=== PATIENT | male | born 1965 | race Caucasian/White ===

== ENCOUNTER 2016-08-07 10:52 | Emergency (ER) | payer MEDICARE, MEDICAID ==
[2016-08-07] MEDS ORDERED: MECLIZINE HCL 25 MG TABLET PO ONE (11:40)
[2016-08-07] MEDS ORDERED: MECLIZINE HCL 25 MG TABLET ONE (11:46)
--- NOTE | 2016-08-07 11:47 | ERNOTE ---
Dizziness ER Record Date of Service: 08/07/16 Presenting Symptoms: dizziness Time Seen by Provider: 08/07/16 11:31 Source: patient, RN notes reviewed Exam Limitations: no limitations Immunizations: IMMUNIZATION HX Immunizations Up to Date Yes History of Influenza Vaccine No Allergies/Adverse Reactions: Allergies Allergy/AdvReac Type Severity Reaction Status Date / Time No Known Allergies Allergy Verified 08/07/16 11:21 Home Medications: HOME MEDICATIONS Albuterol Sulfate [Ventolin HFA] 2 puff IH BID 03/23/16 [Last Taken 04/17/16 04: 30] Aspirin [Aspirin Enteric Coated] 325 mg PO DAILY 03/23/16 [Last Taken 04/17/16 04:30] Atorvastatin Calcium [Lipitor] 80 mg PO DAILY 03/23/16 [Last Taken 04/17/16 04: 30] Budesonide/Formoterol Fumarate [Symbicort 160-4.5 Mcg Inhaler] 2 puff IH BID 12/01 [Last Taken 04/17/16 04:30] Cyclobenzaprine HCl [Flexeril] 10 mg PO TID 03/23/16 [Last Taken 04/17/16 04:30] Isosorbide Mononitrate [Imdur] 30 mg PO DAILY 03/23/16 [Last Taken 04/17/16 04: 30] Lisinopril [Zestril] 2.5 mg PO DAILY 03/23/16 [Last Taken 04/17/16 04:30] Metoprolol Succinate [Toprol Xl] 50 mg PO DAILY 03/23/16 [Last Taken 04/17/16 04 :30] Naproxen [Naprosyn] 500 mg PO BID 03/23/16 [Last Taken 04/17/16 04:30] Nitroglycerin [Nitrostat] 0.4 mg SL [id number] PRN 03/23/16 [Last Taken 04/17/16 04 :30] Pantoprazole Sodium [Protonix] 40 mg PO BID 03/23/16 [Last Taken 04/17/16 04:30] Sucralfate [Carafate] 1 gm PO QID 03/23/16 [Last Taken 04/17/16 04:30] - History of Present Illness Narrative: 51 y/o male ambulatory to the ED for dizziness and nausea that began yesterday and are worse today. He describes the dizziness as a lightheaded sensation. He denies any other symptoms. His grandchildren recently had influenza and he has not been vaccinated. Date (Duration): 08/06/16 Timing and Duration: gradual onset Noted on awakening:: No Sense of movement: Present: vague Decreased ability to stand/walk:: Present: walks w/o assistance Usually:: Present: walks w/o assistance Modifying Factors - (Improves): Reports: nothing Modifying Factors - (Worsens): Reports: nothing Prior Treament: Denies: recently seen Review of Systems - Review of Systems Constitutional: Present: malaise. Absent: recent illness, fever, chills, fatigue EYE: Absent: eye pain, blurred vision ENT: Absent: ear pain, nose congestion, nasal drainage, sore throat Respiratory: Absent: shortness of breath, cough Cardiology: Absent: chest pain, palpitations, syncope Gastrointestinal/Abdominal: Present: nausea. Absent: vomiting, diarrhea, abdominal pain, eating less, drinking less Genitourinary: Present: no symptoms reported Musculoskeletal: Present: no symptoms reported Skin: Absent: rash, lesions Neurological: Absent: headache, weakness, numbness, tingling Endocrine: Present: no symptoms reported Hematologic/Lymphatic: Present: no symptoms reported Psych: Present: no symptoms reported - Patient's Past Medical History Patient History - Medical: Chronic Pain, Depression Patient History - Cardiac/Respiratory: Coronary Heart Disease, Hypertension, Hyperlipidemia, Myocardial Infarction Patient History - Cancer: No Hx of Cancer Patient History - Surgical Procedures: Coronary Bypass Surgery, Cardiac stent, T & A Patient History - Other: None - Family History Father Family History - Medical: No pertinent hx Family History - Cardiac/Respiratory: CVA/Stroke, Myocardial Infarction Mother Family History - Medical: No pertinent hx Family History - Cardiac/Respiratory: No pertinent hx Sister Family History - Medical: No pertinent hx Family History - Cardiac/Respiratory: No pertinent hx - Social History Living Situations: home Abuse History: No History of abuse Psych History: Hx of Depression Smoking Status: Former smoker Alcohol Use: heavy Drug Use: none - Immunizations Immunizations Up to Date: Yes Hx Pneumococcal Vaccination: More Information Required to Determine History of Influenza Vaccine: No Physical Exam - Physical Exam General Appearance: Present: wd/wn, alert, no apparent distress Eye Exam: Normal inspection: bilateral, PERRL: bilateral, EOMI: bilateral Ears, Nose, Throat: Present: normal ENT inspection, hearing grossly normal, normal pharynx. Absent: abnormal TM (R), abnormal TM (L), nasal congestion, sinus pain/drainage, pharyngeal erythema Neck: Present: normal inspection, nontender, supple. Absent: lymphadenopathy (R ), lymphadenopathy (L) Respiratory: Present: no respiratory distress, normal breath sounds, no accessory muscle use, lungs clear Cardiovascular/Chest: Present: regular rate, rhythm, no murmur Neurological Exam: Present: alert, oriented, normal mood/affect, no motor/ sensory deficits Skin Exam: Present: normal color, warm/dry ED Progress - Results and Orders Patient's Lab Results:: I have reviewed the patient's lab results. - Vital Signs Patient's Vital Signs:: I have reviewed the patient's vital signs. Vital Signs: Vital Signs 08/07/16 11:10 Temperature 36.1 C L Pulse Rate 86 Respiratory 12 Rate Blood Pressure 117/72 O2 Sat by Pulse 96 Oximetry - Progress/Reassessment Chief Complaint: Dizziness Progress:: Improved Departure Clinical Impression: Dizziness - Departure Disposition: Home self-care Condition: Good Instructions: Dizziness, [id number] Additional Instructions: Increase your fluid intake - but decrease alcohol consumption Follow up with your doctor if symptoms continue Referrals: Oral Castañeda DO [Primary Care Provider] -
--- OUTSIDE RECORDS SUMMARY | 2016-08-07 11:53 | XMS REPORT | Continuity of Care Document ---
:1965 Author Organization [facility] ([facility]) Address [address] [place] [address] Phone [phone] Care Team Providers Name Role Phone Oral Castañeda Primary Care Provider [phone] Source Comments This disclosure is being made pursuant to the Care Everywhere program, applicable federal and state laws, and may not contain all informaitonavailable regarding this patient.[facility] ([facility]) Active Allergies and Adverse Reactions No Known Allergies Current Medications Prescription Sig. Disp. Refills Start Date End Date Status aspirin 325 mg Take 1 Tab by 05/27/2014 Active tablet mouth daily sucralfate 1000 mg Take 1 Tab by 08/05/2014 Active tablet mouth 4 times daily budesonide-formote Use 2 Puffs by 01/09/2014 Active rol (SYMBICORT) inhalation 2 160-4.5 times daily mcg/Actuation inhaler isosorbide Take 1 tablet 90 tablet 4 08/04/2015 Active mononitrate (30 mg total) by (IMDUR) 30 mg CR mouth daily. tablet pantoprazole Take 1 tablet 180 tablet 3 03/13/2016 Active (PROTONIX) 40 mg (40 mg total) by EC tablet mouth 2 times daily. atorvastatin 80 mg Take 1 tablet 90 tablet 0 07/27/2016 Active tablet (80 mg total) by mouth daily. lisinopril 2.5 mg Take 1 tablet 90 tablet 0 07/27/2016 Active tablet (2.5 mg total) by mouth daily. metoPROLol Take 1 tablet 90 tablet 0 07/27/2016 Active succinate 50 mg XL (50 mg total) by tablet mouth daily. furosemide 20 mg Take 1 tablet 90 tablet 3 08/02/2016 Active tablet (20 mg total) by mouth daily. metoPROLol Take 1 tablet 90 tablet 3 06/23/2015 Discontinued succinate 50 mg XL (50 mg total) by 7 tablet mouth daily lisinopril 2.5 mg Take 1 tablet 90 tablet 3 06/23/2015 Discontinued tablet (2.5 mg total) 7 by mouth daily atorvastatin 80 mg Take 1 tablet 90 tablet 3 06/23/2015 Discontinued tablet (80 mg total) by 7 mouth daily Active Problems Problem Noted Date CAD in [place] artery 01/05/2015 Overview: S/p CABG with ASCENCIO-LAD, VG-OM (occluded) and overlapping Promus 3.5 x12 and 3.0 x12 mm LASHANDA from LM into LCx CAD of autologous bypass graft 01/05/2015 Overview: Occluded VG-OM Hyperlipidemia 01/05/2015 Ischemic cardiomyopathy 01/05/2015 Overview: LVSF now normalized Most Recent Encounters Date Type Specialty Providers Description 08/02/2016 Office Visit Heart and Vascular Craig Nolen Dx: CAD in [place] MD [place] artery (Primary Dx) 07/27/2016 Refill Cardiac Rehabilitation Craig Nolen Dx: Cardiomyopathy MD Scott (Primary Dx) Social History Tobacco Use Types Packs/Day Years Used Date Former Smoker Last Filed Vital Signs Vital Sign Reading Time Taken Blood Pressure 104/60 08/02/2016 2:04 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 Pulse 60 08/02/2016 2:04 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 Temperature - - Respiratory Rate - - Height 1.727 m (5' 8") 08/02/2016 2:04 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 Weight 95.709 kg (211 lb) 08/02/2016 2:04 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 Body Mass Index 32.09 08/02/2016 2:04 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 Oxygen Saturation - - Plan of Care Date Type Specialty Providers Description 01/31/2017 Appointment Heart and Vascular Craig Nolen, Chief Comp: Patient Reported Reason For [address] [place] [address] [phone] (Fax) Health Maintenance Due Date Last Done Comments HCV Screening 1965 Hepatitis B Vaccine (1 of 3 - Primary Series) 1965 Tdap Vaccine 1976 Lipid Disorder Screening 1983 MMR Vaccine 1983 Td Vaccine 1983 Colonoscopy 2015 Prostate Cancer Screening 2015 Influenza Vaccine: Seasonal (#1) 01/17/2016 Results from Last 3 Months Not on file
[2016-08-07 12:01] LABS: Hematocrit 44.2 % (42.0-52.0); Mean Cell Volume 89.1 fl (78-100); Mean Corpuscular Hemoglobin 30.2 pg (27-31); Mean Corpuscular Hgb Conc 33.9 g/dl (32-36); Mean Platelet Volume 9.3 fl (6.0-9.5); Neutrophil # 5.1 K/mm3 (1.3-6.0); Neutrophil % 73.5 % (42-75.0); Platelet Count 242 K/mm3 (150-450); Red Blood Count 4.96 M/mm3 (4.7-6.0); White Blood Count 6.9 K/mm3 (4.0-10.5)
[2016-08-07 12:18] LABS: Albumin * 3.5 gm/dl (3.4-5.0); Anion Gap 16.3 mmol/L (6.8-13.8); Bilirubin, Total 0.5 mg/dL (0.0-1.1); Ca. Corrected For Albumin 8.9 mg/dL (8.4-10.2); Calcium * 8.8 mg/dL (7.9-10.9); Carbon Dioxide 23.5 mmol/L (24-32.6); Potassium 3.8 mmol/L (3.4-4.6); Total Protein 7.4 gm/dL (6.2-8.2)
[2016-08-07 12:53] VITALS: BP 136/78
== END 2016-08-07 12:56 | disposition home or self-care (01) ==
LOC: ER 10:52
DX: R42 Dizziness and giddiness (principal); I25.2 Old myocardial infarction; I10 Essential (primary) hypertension; G89.29 Other chronic pain; E78.5 Hyperlipidemia, unspecified

== ENCOUNTER 2016-11-01 13:17 | Emergency (ER) | payer MEDICARE, MEDICAID ==
[2016-11-01] MEDS ORDERED: ASPIRIN 81 MG TAB.CHEW PO ONE (13:28)
--- OUTSIDE RECORDS SUMMARY | 2016-11-01 13:29 | XMS REPORT | Continuity of Care Document ---
:1965 Author Organization [facility] ([facility]) Address [address] [place] [address] Phone [phone] Care Team Providers Name Role Phone Oral Castañeda Primary Care Provider [phone] Source Comments This disclosure is being made pursuant to the Care Everywhere program, applicable federal and state laws, and may not contain all informaitonavailable regarding this patient.[facility] ([facility]) Active Allergies and Adverse Reactions No Known Allergies Current Medications Prescription Sig. Disp. Refills Start Date End Date Status aspirin 325 mg tablet Take 1 Tab by 05/27/2014 Active mouth daily sucralfate 1000 mg Take 1 Tab by 08/05/2014 Active tablet mouth 4 times daily budesonide-formoterol Use 2 Puffs by 01/09/2014 Active (SYMBICORT) 160-4.5 inhalation 2 times mcg/Actuation inhaler daily pantoprazole Take 1 tablet (40 180 tablet 3 03/13/2016 Active (PROTONIX) 40 mg EC mg total) by mouth tablet 2 times daily. furosemide 20 mg Take 1 tablet (20 90 tablet 3 08/02/2016 Active tablet mg total) by mouth daily. isosorbide Take 1 tablet (30 90 tablet 4 08/11/2016 Active mononitrate (IMDUR) mg total) by mouth 30 mg CR tablet daily. atorvastatin 80 mg Take 1 tablet (80 90 tablet 3 08/25/2016 Active tablet mg total) by mouth daily. metoPROLol succinate Take 1 tablet (50 90 tablet 3 08/25/2016 Active 50 mg XL tablet mg total) by mouth daily. lisinopril 2.5 mg Take 1 tablet (2.5 90 tablet 3 08/25/2016 Active tablet mg total) by mouth daily. Active Problems Problem Noted Date CAD in [place] artery 01/05/2015 Overview: S/p CABG with ASCENCIO-LAD, VG-OM (occluded) and overlapping Promus 3.5 x12 and 3.0 x12 mm LASHANDA from LM into LCx CAD of autologous bypass graft 01/05/2015 Overview: Occluded VG-OM Hyperlipidemia 01/05/2015 Ischemic cardiomyopathy 01/05/2015 Overview: LVSF now normalized Most Recent Encounters Date Type Specialty Providers Description 08/25/2016 Refill Cardiac Rehabilitation Candy Rogel MD Dx: Hyperlipidemia (Primary Dx) 08/11/2016 Refill Heart and Vascular Craig Nolen, Dx: CAD in [place] artery (Primary Dx) Social History Tobacco Use Types Packs/Day Years Used Date Former Smoker Last Filed Vital Signs Vital Sign Reading Time Taken Blood Pressure 104/60 08/02/2016 2:04 PM 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 Pulse 60 08/02/2016 2:04 PM BEE RAISER Temperature - - Respiratory Rate - - Height 1.727 m (5' 8") 08/02/2016 2:04 PM BEE RAISER Weight 95.709 kg (211 lb) 08/02/2016 2:04 PM BEE RAISER Body Mass Index 32.09 08/02/2016 2:04 PM BEE RAISER Oxygen Saturation - - Plan of Care Date Type Specialty Providers Description 01/31/2017 Appointment Heart and Vascular Craig Nolen, Chief Comp: Patient MD Reported Reason For [address] [place] [address] [phone] (Fax) Health Maintenance Due Date Last Done Comments HCV Screening 1965 Hepatitis B Vaccine (1 of 3 - Primary Series) 1965 Tdap Vaccine 1976 Lipid Disorder Screening 1983 MMR Vaccine 1983 Td Vaccine 1983 Colonoscopy 2015 Prostate Cancer Screening 2015 Influenza Vaccine: Seasonal (#1) 01/17/2016 Results from Last 3 Months Not on file
[2016-11-01 13:43] LABS: Hematocrit 41.1 % (42.0-52.0); Hemoglobin 14.1 gm/dL (13.5-18.0); Mean Cell Volume 88.8 fl (78-100); Mean Corpuscular Hemoglobin 30.5 pg (27-31); Mean Corpuscular Hgb Conc 34.3 g/dl (32-36); Mean Platelet Volume 9.7 fl (6.0-9.5); Neutrophil # 5.1 K/mm3 (1.3-6.0); Neutrophil % 66.8 % (42-75.0); Platelet Count 219 K/mm3 (150-450); Red Blood Count 4.63 M/mm3 (4.7-6.0); White Blood Count 7.6 K/mm3 (4.0-10.5)
[2016-11-01] MEDS ORDERED: ASPIRIN 81 MG TAB.CHEW ONE (13:44)
[2016-11-01 13:53] LABS: Prothrombin Time (Patient) 10.5 Seconds (9.4-11.4)
[2016-11-01 13:55] LABS: INR 1.01 INR (0.90-1.10); Partial Thrombolplastin Time 28.6 Seconds (24-32)
[2016-11-01 14:02] LABS: ALT 47 U/L (19-67); AST 32 U/L (0-48); Albumin * 3.2 gm/dl (3.4-5.0); Alkaline Phosphatase * 86 U/L (50-170); Anion Gap 10.5 mmol/L (6.8-13.8); BUN/Creatinine Ratio 10.3 (9.0-21.6); Bilirubin, Total 0.5 mg/dL (0.0-1.1); Blood Urea Nitrogen 12 mg/dL (6-23); Ca. Corrected For Albumin 8.8 mg/dL (8.4-10.2); Calcium * 8.5 mg/dL (7.9-10.9); Carbon Dioxide 28.8 mmol/L (24-32.6); Chloride 104 mmol/L (97-106); Glucose * 134 mg/dL (70-110); Potassium 4.3 mmol/L (3.4-4.6); Sodium 139 mmol/L (132-142); Total Protein 6.7 gm/dL (6.2-8.2)
[2016-11-01 14:04] LABS: Troponin I Less than 0.017 ng/ml (0.00-0.10)
[2016-11-01 15:13] VITALS: BP 100/69
--- NOTE | 2016-11-01 15:36 | ERNOTE ---
Chest Pain/Cardiac HPI Date of Service: 11/01/16 Chief Complaint: Chest Pain Time Seen by Provider: 11/01/16 13:39 Source: patient Exam Limitations: no limitations Immunizations: IMMUNIZATION HX Immunizations Up to Date Yes History of Influenza Vaccine Yes Hx Pneumococcal Vaccination Yes Allergies/Adverse Reactions: Allergies No Known Allergies Allergy (Verified 11/01/16 13:26) Home Medications: HOME MEDICATIONS Albuterol Sulfate [Ventolin HFA] 2 puff IH BID 03/23/16 [Last Taken 04/17/16 04: 30] Aspirin [Aspirin Enteric Coated] 325 mg PO DAILY 03/23/16 [Last Taken 04/17/16 04:30] Atorvastatin Calcium [Lipitor] 80 mg PO DAILY 03/23/16 [Last Taken 04/17/16 04: 30] Budesonide/Formoterol Fumarate [Symbicort 160-4.5 Mcg Inhaler] 2 puff IH BID 12/01 [Last Taken 04/17/16 04:30] Cyclobenzaprine HCl [Flexeril] 10 mg PO TID 03/23/16 [Last Taken 04/17/16 04:30] Isosorbide Mononitrate [Imdur] 30 mg PO DAILY 03/23/16 [Last Taken 04/17/16 04: 30] Lisinopril [Zestril] 2.5 mg PO DAILY 03/23/16 [Last Taken 04/17/16 04:30] Metoprolol Succinate [Toprol Xl] 50 mg PO DAILY 03/23/16 [Last Taken 04/17/16 04 :30] Naproxen [Naprosyn] 500 mg PO BID 03/23/16 [Last Taken 04/17/16 04:30] Nitroglycerin [Nitrostat] 0.4 mg SL [id number] PRN 03/23/16 [Last Taken 04/17/16 04 :30] Pantoprazole Sodium [Protonix] 40 mg PO BID 03/23/16 [Last Taken 04/17/16 04:30] Sucralfate [Carafate] 1 gm PO QID 03/23/16 [Last Taken 04/17/16 04:30] Narrative: patient presenting to the ED for Chest pain that started at 4am. He is unsure how long it lasted but stated it has passed. he is here because he feels a little weak. Date (Duration): 11/01/16 Timing: resolved prior to arrival Severity/Quality: mild Location: substernal Chest Pain Radiation: no radiation Activities at Onset: none Modifying Factors - Improves: Present: nothing Modifying Factors - Worsens: Present: nothing Nitro Today/Relief: no nitro taken today Aspirin Treatment Today: 325 mg x 1, provided at home Associated Symptoms: Present: denies symptoms. Absent: headache, fever/chills, nausea, vomiting Prior Chest Pain/Cardiac Workup: Reports: prior chest pain, heart attack, cardiac cath Review of Systems - Narrative Narrative: patient states that he had chest pain at 4am. patient currently has no chest pain but stated he was helping someone move yesterday, lifting boxes and may have over exerted himself. patient states he drink about 4 days a week and drinks about 6 beers when he does. - Review of Systems Constitutional: Present: weakness, fatigue EYE: Present: no symptoms reported ENT: Present: no symptoms reported Respiratory: Present: no symptoms reported Cardiology: Present: no symptoms reported Gastrointestinal/Abdominal: Present: no symptoms reported Genitourinary: Present: no symptoms reported Musculoskeletal: Present: no symptoms reported Skin: Present: no symptoms reported Neurological: Present: no symptoms reported Endocrine: Present: no symptoms reported Hematologic/Lymphatic: Present: no symptoms reported Psych: Present: no symptoms reported - Patient's Past Medical History Patient History - Medical: Chronic Pain, Depression Patient History - Cardiac/Respiratory: Coronary Heart Disease, Hypertension, Hyperlipidemia, Myocardial Infarction Patient History - Cancer: No Hx of Cancer Patient History - Surgical Procedures: Coronary Bypass Surgery, Cardiac stent, T & A Patient History - Other: None - Family History Father Family History - Medical: No pertinent hx Family History - Cardiac/Respiratory: CVA/Stroke, Myocardial Infarction Mother Family History - Medical: No pertinent hx Family History - Cardiac/Respiratory: No pertinent hx Sister Family History - Medical: No pertinent hx Family History - Cardiac/Respiratory: No pertinent hx - Social History Living Situations: home Abuse History: No History of abuse Psych History: Hx of Depression Smoking Status: Former smoker Alcohol Use: heavy Drug Use: none - Immunizations Immunizations Up to Date: Yes Hx Pneumococcal Vaccination: Yes History of Influenza Vaccine: Yes Physical Exam - Physical Exam Narrative: no pain at this time. patient appears slightly dehydrated, and sunburnt. General Appearance: Present: wd/wn, alert, no apparent distress Eye Exam: Normal inspection: bilateral Ears, Nose, Throat: Present: normal ENT inspection, dry mucous membranes. Absent: hearing decreased Neck: Present: normal inspection, nontender Respiratory: Present: no respiratory distress, normal breath sounds, no accessory muscle use, chest nontender, lungs clear Cardiovascular/Chest: Present: regular rate, rhythm, no murmur, normal peripheral pulses Gastrointestinal/Abdominal: Present: normal bowel sounds, nontender, soft Back Exam: Present: normal inspection, normal range of motion, no CVA tenderness , no vertebral tenderness Extremity Exam: Present: normal inspection, non-tender, normal range of motion, no edema Neurological Exam: Present: alert, oriented, normal mood/affect, no motor/ sensory deficits Skin Exam: Present: normal color, warm/dry Lymphatic Exam: Present: no adenopathy ED Progress - Results and Orders Patient's Lab Results:: I have reviewed the patient's lab results. Results and Orders: negative trop - Vital Signs Patient's Vital Signs:: I have reviewed the patient's vital signs. Vital Signs: Vital Signs 11/01/16 11/01/16 11/01/16 13:21 13:32 13:47 Temperature 36.8 C Pulse Rate 67 59 L 68 Respiratory 16 13 15 Rate Blood Pressure 125/54 108/69 109/71 O2 Sat by Pulse 96 94 93 Oximetry 11/01/16 11/01/16 11/01/16 14:07 14:17 14:32 Temperature Pulse Rate 56 L 63 62 Respiratory 13 17 14 Rate Blood Pressure 98/51 114/75 102/61 O2 Sat by Pulse 95 94 91 Oximetry 11/01/16 11/01/16 11/01/16 14:35 14:45 14:57 Temperature Pulse Rate 66 59 L 60 Respiratory 16 17 Rate Blood Pressure 112/63 108/66 O2 Sat by Pulse 92 93 Oximetry 11/01/16 15:07 Temperature Pulse Rate 59 L Respiratory 11 L Rate Blood Pressure 100/69 O2 Sat by Pulse 95 Oximetry - EKG EKG read: Reviewed by me EKG Comments: interp by ER Attending - X-Ray X-Ray #1 X-Ray: chest Interpretation: Reviewed by me X-ray Comments: 05/12/2016 FINDINGS: Chest PA Lateral * Hyperinflated lung volumes, stable. No consolidation or mass. No pneumothorax or pleural fluid collections. Cardiac size within normal limits. Calcifications over the aorta, stable. Surgical changes of the mediastinum and the heart likely from previous coronary artery bypass graft procedure, stable. Trachea is in normal position. Bones show degenerative changes of the spine. Median sternotomy wires are present, stable. IMPRESSION: 1. No focal acute cardiopulmonary finding. 2. Stable findings are as above. Electronically signed by Duke Kaye M.D.. - Progress/Reassessment Chief Complaint: Chest Pain Progress:: Pain free at discharge Plan - Plan Plan: patient states he feels better and requesting to go home, Refused IV and IV fluids. Patient also refused to be observed for another set of labs or a 23 hour obs r/t his chest pain and his significant cardiac history. Patient stated that he is " going to go home and take it easy" and that he is "feeling better". ER attending aware of this situation. Departure - Departure Clinical Impression: Chest pain Qualifiers: Chest pain type: unspecified Qualified Code(s): R07.9 - Chest pain, unspecified Disposition: Home Follow Up Needed Condition: Stable Instructions: Nonspecific Chest Pain, [id number] Additional Instructions: Continue any previous medications as directed. Please return to the emergency room if he develop any new signs and symptoms of chest pain or shortness of breath. Follow up with your primary care regarding technician support engineer in the next 2- 3 days. Referrals: Oral Castañeda DO [Primary Care Provider] -
== END 2016-11-01 15:44 | disposition home or self-care (01) ==
LOC: ER 13:17
DX: R07.9 Chest pain, unspecified (principal); Z87.891 Personal history of nicotine dependence; E78.5 Hyperlipidemia, unspecified; I10 Essential (primary) hypertension; Z95.5 Presence of coronary angioplasty implant and graft; I50.9 Heart failure, unspecified

== ENCOUNTER 2017-03-04 12:49 | Emergency (ER) | payer MEDICARE, MEDICAID ==
[2017-03-04 13:04] VITALS: BP 121/76
--- NOTE | 2017-03-04 13:20 | ERNOTE ---
Date of Service: 03/04/17 Time Seen by Provider: 03/04/17 13:10 Stated Complaint: NOT FEELING WELL Presenting Symptoms:: cough, runny nose, fever Source: patient Exam Limitations: no limitations Immunizations: IMMUNIZATION HX Immunizations Up to Date Yes History of Influenza Vaccine No Hx Pneumococcal Vaccination No Allergies/Adverse Reactions: Allergies No Known Allergies Allergy (Verified 03/04/17 13:04) Home Medications: HOME MEDICATIONS Albuterol Sulfate [Ventolin HFA] 2 puff IH BID 03/23/16 [Last Taken 04/17/16 04: 30] Aspirin [Aspirin Enteric Coated] 325 mg PO DAILY 03/23/16 [Last Taken 04/17/16 04:30] Atorvastatin Calcium [Lipitor] 80 mg PO DAILY 03/23/16 [Last Taken 04/17/16 04: 30] Budesonide/Formoterol Fumarate [Symbicort 160-4.5 Mcg Inhaler] 2 puff IH BID 12/01 [Last Taken 04/17/16 04:30] Cyclobenzaprine HCl [Flexeril] 10 mg PO TID 03/23/16 [Last Taken 04/17/16 04:30] Isosorbide Mononitrate [Imdur] 30 mg PO DAILY 03/23/16 [Last Taken 04/17/16 04: 30] Lisinopril [Zestril] 2.5 mg PO DAILY 03/23/16 [Last Taken 04/17/16 04:30] Metoprolol Succinate [Toprol Xl] 50 mg PO DAILY 03/23/16 [Last Taken 04/17/16 04 :30] Naproxen [Naprosyn] 500 mg PO BID 03/23/16 [Last Taken 04/17/16 04:30] Nitroglycerin [Nitrostat] 0.4 mg SL [id number] PRN 03/23/16 [Last Taken 04/17/16 04 :30] Pantoprazole Sodium [Protonix] 40 mg PO BID 03/23/16 [Last Taken 04/17/16 04:30] Sucralfate [Carafate] 1 gm PO QID 03/23/16 [Last Taken 04/17/16 04:30] Doxycycline Hyclate [Morgidox] 100 mg PO BID #20 capsule 03/04/17 [Last Taken Unknown] - History of Present Ilness Timing: constant, getting worse Severity: moderate Frequency/Possible Cause: Reports: occasional episodes Modifying Factors - Improves: Reports: nothing Modifying Factors - Worsens: Reports: activity Associated Symptoms: Reports: cough, nasal congestion, nasal drainage, dizziness , lightheadedness Review of Systems - Review of Systems Constitutional: Present: See HPI, recent illness, weakness, fatigue, malaise EYE: Present: no symptoms reported ENT: Present: nose congestion, nasal drainage Respiratory: Present: shortness of breath Cardiology: Present: no symptoms reported Gastrointestinal/Abdominal: Present: no symptoms reported Genitourinary: Present: no symptoms reported Musculoskeletal: Present: muscle stiffness Neurological: Present: no symptoms reported Endocrine: Present: no symptoms reported Hematologic/Lymphatic: Present: no symptoms reported Psych: Present: no symptoms reported All Other Systems: All systems neg except as marked - Patient's Past Medical History Patient History - Medical: Chronic Pain, Depression Patient History - Cardiac/Respiratory: Coronary Heart Disease, Hypertension, Hyperlipidemia, Myocardial Infarction Patient History - Cancer: No Hx of Cancer Patient History - Surgical Procedures: Coronary Bypass Surgery, Cardiac stent, Other Patient History - Other: None - Family History Family History:: no untoward family reactions to anesthesia, no family history of clotting disorders - Family History Father Family History - Medical: No pertinent hx Family History - Cardiac/Respiratory: CVA/Stroke, Myocardial Infarction Mother Family History - Medical: No pertinent hx Family History - Cardiac/Respiratory: No pertinent hx Sister Family History - Medical: No pertinent hx Family History - Cardiac/Respiratory: No pertinent hx - Social History Living Situations: home Abuse History: No History of abuse Psych History: Hx of Depression Smoking Status: Former smoker Alcohol Use: heavy Drug Use: none - Immunizations Immunizations Up to Date: Yes Hx Pneumococcal Vaccination: No History of Influenza Vaccine: No Physical Exam - Physical Exam General Appearance: Present: mild distress, anxious Head Exam: Present: no evidence of injury Eye Exam: Normal inspection: bilateral, PERRL: bilateral, EOMI: bilateral Ears, Nose, Throat: Present: sinus pain/drainage, normal pharynx Neck: Present: normal inspection, nontender Respiratory: Present: no respiratory distress, normal breath sounds, no accessory muscle use, chest nontender, lungs clear Cardiovascular/Chest: Present: regular rate, rhythm, no murmur, normal peripheral pulses Peripheral Pulses: N=norm/S=strong/W=weak/B=bound/A=absent: Carotid (R): Normal , Carotid (L): Normal, Radial (R): Normal, Radial (L): Normal, Femoral (R): Normal, Femoral (L): Normal, Dorsalis-pedis (R): Normal, Dorsalis-pedis (L): Normal Gastrointestinal/Abdominal: Present: normal bowel sounds, nontender, nondistended, soft, no organomegaly Back Exam: Present: normal inspection, normal range of motion, no CVA tenderness , no vertebral tenderness Extremity Exam: Present: normal inspection, non-tender, normal range of motion, no edema Neurological Exam: Present: alert, oriented ED Progress - Vital Signs Patient's Vital Signs:: I have reviewed the patient's vital signs. Vital Signs: Vital Signs 03/04/17 03/04/17 13:01 13:08 Temperature 36.4 C L Pulse Rate 57 L 57 L Respiratory 17 Rate Blood Pressure 121/76 O2 Sat by Pulse 98 Oximetry - Progress/Reassessment Chief Complaint: Upper Respiratory Symptoms Progress:: Unchanged - Transfer of Care Expected Disposition: Discharge Departure - Departure Clinical Impression: Sinusitis chronic, ethmoidal Disposition: Home self-care Condition: Fair Instructions: Sinusitis, Adult, [id number] Referrals: Oral Castañeda DO [Primary Care Provider] - Prescriptions: Doxycycline Hyclate [Morgidox] 100 mg PO BID #20 capsule
== END 2017-03-04 13:29 | disposition home or self-care (01) ==
LOC: ER 12:49
DX: J32.2 Chronic ethmoidal sinusitis (principal); G89.29 Other chronic pain; I25.2 Old myocardial infarction; I10 Essential (primary) hypertension; E78.5 Hyperlipidemia, unspecified; F32.89 Other specified depressive episodes

== ENCOUNTER 2017-03-12 14:22 | Emergency (ER) | payer MEDICARE, MEDICAID ==
[2017-03-12] MEDS ORDERED: ALBUTEROL SULFATE/IPRATROPIUM 3 ML NEBU IH ONE ×2 (15:00→15:02)
[2017-03-12 15:02] LABS: Hematocrit 42.9 % (42.0-52.0); Hemoglobin 14.8 gm/dL (13.5-18.0); Mean Cell Volume 88.6 fl (78-100); Mean Corpuscular Hemoglobin 30.6 pg (27-31); Mean Corpuscular Hgb Conc 34.5 g/dl (32-36); Mean Platelet Volume 9.9 fl (6.0-9.5); Neutrophil % 67.8 % (42-75.0); Platelet Count 237 K/mm3 (150-450); Red Blood Count 4.84 M/mm3 (4.7-6.0); Red Cell Distribution Width 12.7 % (11.5-14.0); White Blood Count 8.8 K/mm3 (4.0-10.5)
[2017-03-12 15:19] LABS: ALT 68 U/L (19-67); AST 39 U/L (0-48); Albumin * 3.3 gm/dl (3.4-5.0); Alkaline Phosphatase * 88 U/L (50-170); Anion Gap 14.1 mmol/L (6.8-13.8); BNP * 88 pg/mL (5-140); BUN/Creatinine Ratio 18.8 (9.0-21.6); Bilirubin, Total 0.4 mg/dL (0.0-1.1); Blood Urea Nitrogen 21 mg/dL (6-23); Ca. Corrected For Albumin 9.2 mg/dL (8.4-10.2); Carbon Dioxide 23.8 mmol/L (24-32.6); Chloride 102 mmol/L (97-106); Glucose * 182 mg/dL (70-110); Potassium 3.9 mmol/L (3.4-4.6); Sodium 136 mmol/L (132-142); Total Protein 7.2 gm/dL (6.2-8.2)
[2017-03-12 15:21] LABS: Troponin I Less than 0.017 ng/ml (0.00-0.10)
--- NOTE | 2017-03-12 15:34 | ERNOTE ---
Dyspnea - Date Date of Service: 03/12/17 - General Presenting Symptoms: shortness of breath Time Seen by Provider: 03/12/17 15:22 Source: patient - Immun/Allergies/Home Medications Immunizations: IMMUNIZATION HX Immunizations Up to Date Yes History of Influenza Vaccine Yes Hx Pneumococcal Vaccination No Allergies/Adverse Reactions: Allergies No Known Allergies Allergy (Verified 03/04/17 13:04) Home Medications: HOME MEDICATIONS Albuterol Sulfate [Ventolin HFA] 2 puff IH BID 03/23/16 [Last Taken 04/17/16 04: 30] Aspirin [Aspirin Enteric Coated] 325 mg PO DAILY 03/23/16 [Last Taken 04/17/16 04:30] Atorvastatin Calcium [Lipitor] 80 mg PO DAILY 03/23/16 [Last Taken 04/17/16 04: 30] Budesonide/Formoterol Fumarate [Symbicort 160-4.5 Mcg Inhaler] 2 puff IH BID 12/01 [Last Taken 04/17/16 04:30] Cyclobenzaprine HCl [Flexeril] 10 mg PO TID 03/23/16 [Last Taken 04/17/16 04:30] Isosorbide Mononitrate [Imdur] 30 mg PO DAILY 03/23/16 [Last Taken 04/17/16 04: 30] Lisinopril [Zestril] 2.5 mg PO DAILY 03/23/16 [Last Taken 04/17/16 04:30] Metoprolol Succinate [Toprol Xl] 50 mg PO DAILY 03/23/16 [Last Taken 04/17/16 04 :30] Naproxen [Naprosyn] 500 mg PO BID 03/23/16 [Last Taken 04/17/16 04:30] Nitroglycerin [Nitrostat] 0.4 mg SL [id number] PRN 03/23/16 [Last Taken 04/17/16 04 :30] Pantoprazole Sodium [Protonix] 40 mg PO BID 03/23/16 [Last Taken 04/17/16 04:30] Sucralfate [Carafate] 1 gm PO QID 03/23/16 [Last Taken 04/17/16 04:30] Doxycycline Hyclate [Morgidox] 100 mg PO BID #20 capsule 03/04/17 [Last Taken Unknown] predniSONE [Prednisone] 2 tab PO DAILY #10 tab 03/12/17 [Last Taken Unknown] - History of Present Illness Narrative: 52yo, M, presents to ER for SOB. States he sat down to drink coffee at a local restaurant. Notes it was "hot and muggy" outside and also inside the restaurant and began to feel SOB. He left after 1 cup and went home and took albuterol inhaler with some mild improvement. His symptoms did not completely resolve, so came to ER. Associated symptoms include sinus congestion for the past 2-2.5 weeks, dx with URI. He also developed some intermittent wheezing over the past week. He does have a hx of several MIs in 2013 over a 1.5 month period. He then had a CABG in December 2013. May 2014 had 2 additional stents placed. Since that time, no additional cardiac events. He denies any anterior CP or CP that radiates. He did have a twinge of pain to his L. lateral chest wall lasting a few seconds this am, but no recurrence since. 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 Denies: aspiration/ choking, exposure to smoke Frequency of episodes: Reports: no prior episodes Modifying Factors - (Improves): Reports: albuterol - mild Modifying Factors (Worsens): Reports: activity Associated Symptoms-Dyspnea: Reports: cough, wheezing - 1 week. Denies: chest pain/discomfort, palpitations, dizziness, lightheadedness Review of Systems - Review of Systems Constitutional: Present: fatigue. Absent: fever, chills EYE: Absent: eye pain ENT: Present: nose congestion. Absent: ear pain, sore throat Respiratory: Present: shortness of breath, cough, wheezing Cardiology: Absent: chest pain, palpitations, syncope, edema Gastrointestinal/Abdominal: Absent: nausea, vomiting, abdominal pain Skin: Absent: rash - Patient's Past Medical History Patient History - Medical: Anxiety, Chronic Pain, Depression Patient History - Cardiac/Respiratory: Coronary Heart Disease, Hypertension, Hyperlipidemia, Myocardial Infarction Patient History - Cancer: No Hx of Cancer Patient History - Surgical Procedures: Coronary Bypass Surgery, Cardiac stent, Other Patient History - Other: None - Family History Father Family History - Medical: No pertinent hx Family History - Cardiac/Respiratory: CVA/Stroke, Myocardial Infarction Mother Family History - Medical: No pertinent hx Family History - Cardiac/Respiratory: No pertinent hx Sister Family History - Medical: No pertinent hx Family History - Cardiac/Respiratory: No pertinent hx - Social History Living Situations: home Abuse History: No History of abuse Psych History: Hx of Anxiety, Hx of Depression Smoking Status: Never smoker Have you smoked in the past 12 months: No Do you dip or chew tobacco: No Alcohol Use: heavy Drug Use: none - Immunizations Immunizations Up to Date: Yes Hx Pneumococcal Vaccination: No History of Influenza Vaccine: Yes ED Progress - Date and Time Seen: Date and Time: 03/12/17 17:00 Reports feeling improved since arrival. Reviewed labs and xray with pt in detail. Notes he is only taking his Symbicort once daily and it is ordered twice daily, he is also taking the Doxycycline ordered at his last ER visit daily, rather than the prescribed BID. 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 Discussed risks of stopping medication suddenly without instruction of his doctor. Pt v/u and states he will resume as ordered. - Results and Orders Patient's Lab Results:: I have reviewed the patient's lab results. - Vital Signs Patient's Vital Signs:: I have reviewed the patient's vital signs. Vital Signs: Vital Signs 03/12/17 03/12/17 14:42 15:02 Pulse Rate 82 87 Respiratory 22 H 22 H Rate Blood Pressure 122/80 O2 Sat by Pulse 98 96 Oximetry - EKG EKG: other - possible anterior myocardial ishcmeia - X-Ray X-Ray #1 X-Ray: chest Interpretation: Reviewed by me X-ray Comments: [facility] PATIENT RADIOLOGY STUDY REPORT Patient Patient Name:DAVE SMITH Date: 1965 Sex: M Order Number: [id number] Unique Exam ID: [id number] Exam Requested: CXRPALAT - Chest PA Lateral * Date Scheduled: 03-12-2017 04:10 PM Study Priority: Requesting Service: Requesting Physician: Sagar Alonso Reason for Exam: Shortness of breath Radiological Report : [place] [address] NAME: DAVE SMITH : 1965 MR #: [id number] CC: Sagar Alonso MD LOC: ADM DATE: X-RAY REPORT [id number] RAD/Chest PA Lateral * Exam Date: 03/12/2017 16:10 Ordering Physician: Sagar Alonso HISTORY: Shortness of breath Additional history from technologist: Shortness of breath which started today. History of triple bypass and stenting. History of smoking. TECHNIQUE: PA and lateral views of the chest were obtained. 2 images. COMPARISONS: 11/01/2016 FINDINGS: Chest PA Lateral * Hyperinflated lung volumes, with central bronchial wall prominence and somewhat hyperlucent appearance of the lungs, stable radiographically suggestive of underlying COPD. Correlate clinically. Other considerations include chronic airways disease/bronchitis or reactive airways disease. No consolidation or mass. No pneumothorax or pleural fluid collections. Mild cardiomegaly, stable. Surgical changes of previous coronary artery bypass graft procedure, grossly stable. Trachea is in normal position. Bones show degenerative changes of the spine. Median sternotomy wires are present. IMPRESSION: 1. No focal acute cardiopulmonary finding. 2. Stable findings as discussed above. Correlate technically. Electronically signed by Duke Kaye M.D.. Duke Kaye MD Dict: 03/12/17 1615 Typed: 03/12/17 1618/ 03/12/17 1626 03/12/17 1629 , Approved by: DUKE KAYE Approval Date: 03-12-2017 Approval Time: 04:18 PM THIS REPORT WAS RECEIVED FROM THE [employer] SYSTEM - Progress/Reassessment Chief Complaint: Dyspnea Progress:: Improved Departure Clinical Impression: COPD exacerbation - Departure Disposition: Home self-care Condition: Good Instructions: Chronic Obstructive Pulmonary Disease Exacerbation, [id number] Additional Instructions: Resume use of your Symbicort twice daily as ordered Increase your Albuterol inhaler (rescue inhaler) to 2 puffs every 6 hours scheduled for the next 2 days, and as needed for shortness of breath Complete your Doxycycline as previously ordered (twice daily) Return to ER for any difficulty breathing Referrals: Oral Castañeda DO [Primary Care Provider] - Prescriptions: predniSONE [Prednisone] 2 tab PO DAILY #10 tab
[2017-03-12] MEDS ORDERED: METHYLPREDNISOLONE SOD SUCC/PF 125 MG/2 ML VIAL IM ONE (17:13)
[2017-03-12] MEDS ORDERED: METHYLPREDNISOLONE SOD SUCC/PF 125 MG/2 ML VIAL ONE (17:23)
[2017-03-12 17:38] VITALS: BP 134/84
== END 2017-03-12 17:39 | disposition home or self-care (01) ==
LOC: ER 14:22
DX: J44.1 Chronic obstructive pulmonary disease with (acute) exacerbation (principal)

== ENCOUNTER 2017-07-16 20:09 | Emergency (ER) | payer MEDICARE, MEDICAID ==
[2017-07-16] MEDS ORDERED: NITROGLYCERIN 0.4 MG/TAB BTL SL PRN (20:22)
[2017-07-16] MEDS ORDERED: ASPIRIN 81 MG TAB.CHEW PO ONE (20:22)
--- NOTE | 2017-07-16 20:30 | ERNOTE ---
Dyspnea - General Presenting Symptoms: shortness of breath Time Seen by Provider: 07/16/17 20:18 Source: patient Exam Limitations: no limitations - Immun/Allergies/Home Medications Immunizations: IMMUNIZATION HX Immunizations Up to Date Yes History of Influenza Vaccine Yes Hx Pneumococcal Vaccination No Allergies/Adverse Reactions: Allergies No Known Allergies Allergy (Verified 07/16/17 20:15) Home Medications: HOME MEDICATIONS Albuterol Sulfate [Ventolin HFA] 2 puff IH BID 03/23/16 [Last Taken 04/17/16 04: 30] Aspirin [Aspirin Enteric Coated] 325 mg PO DAILY 03/23/16 [Last Taken 04/17/16 04:30] Atorvastatin Calcium [Lipitor] 80 mg PO DAILY 03/23/16 [Last Taken 04/17/16 04: 30] Budesonide/Formoterol Fumarate [Symbicort 160-4.5 Mcg Inhaler] 2 puff IH BID 12/01 [Last Taken 04/17/16 04:30] Isosorbide Mononitrate [Imdur] 30 mg PO DAILY 03/23/16 [Last Taken 04/17/16 04: 30] Lisinopril [Zestril] 2.5 mg PO DAILY 03/23/16 [Last Taken 04/17/16 04:30] Metoprolol Succinate [Toprol Xl] 50 mg PO DAILY 03/23/16 [Last Taken 04/17/16 04 :30] Naproxen [Naprosyn] 500 mg PO BID 03/23/16 [Last Taken 04/17/16 04:30] Pantoprazole Sodium [Protonix] 40 mg PO BID 03/23/16 [Last Taken 04/17/16 04:30] Sucralfate [Carafate] 1 gm PO QID 03/23/16 [Last Taken 04/17/16 04:30] Azithromycin 250 mg PO DAILY #4 tablet 07/16/17 [Last Taken Unknown] Methylprednisolone [Medrol Dosepak] 4 mg PO DAILY #21 tab.ds.pk 07/16/17 [Last Taken Unknown] - History of Present Illness Narrative: Pt states he has been short of breath for about a week. Today it worsened and his inhalers have not helped. Severity: moderate Initiating event: Reports: unknown Frequency of episodes: Reports: occassional episodes Modifying Factors - (Improves): Reports: albuterol - until today Modifying Factors (Worsens): Reports: activity Review of Systems - Review of Systems Constitutional: Absent: fever, chills EYE: Present: no symptoms reported ENT: Present: no symptoms reported Respiratory: Present: See HPI Cardiology: Absent: chest pain, palpitations Gastrointestinal/Abdominal: Absent: nausea Genitourinary: Present: no symptoms reported Musculoskeletal: Present: no symptoms reported Skin: Present: no symptoms reported Neurological: Present: no symptoms reported Endocrine: Absent: excessive sweating Hematologic/Lymphatic: Present: no symptoms reported Psych: Present: no symptoms reported - Patient's Past Medical History Patient History - Medical: Anxiety, Chronic Pain, Depression Patient History - Cardiac/Respiratory: Coronary Heart Disease, Hypertension, Hyperlipidemia, Myocardial Infarction Patient History - Cancer: No Hx of Cancer Patient History - Surgical Procedures: Coronary Bypass Surgery, Cardiac stent, Other Patient History - Other: None - Family History Father Family History - Medical: No pertinent hx Family History - Cardiac/Respiratory: CVA/Stroke, Myocardial Infarction Mother Family History - Medical: No pertinent hx Family History - Cardiac/Respiratory: No pertinent hx Sister Family History - Medical: No pertinent hx Family History - Cardiac/Respiratory: No pertinent hx - Social History Abuse History: No History of abuse Psych History: Hx of Anxiety, Hx of Depression Smoking Status: Former smoker Alcohol Use: heavy Drug Use: none - Immunizations Immunizations Up to Date: Yes Hx Pneumococcal Vaccination: No History of Influenza Vaccine: Yes Physical Exam - Physical Exam General Appearance: Present: wd/wn, alert, no apparent distress Head Exam: Present: normal inspection, no evidence of injury Ears, Nose, Throat: Present: normal ENT inspection Neck: Present: normal inspection, nontender Respiratory: Present: no respiratory distress, normal breath sounds, no accessory muscle use Cardiovascular/Chest: Present: regular rate, rhythm, no murmur, normal peripheral pulses Gastrointestinal/Abdominal: Present: normal bowel sounds, nontender, nondistended, soft Back Exam: Present: normal inspection Extremity Exam: Present: normal inspection Neurological Exam: Present: alert, oriented, normal mood/affect, no motor/ sensory deficits Skin Exam: Present: normal color, warm/dry Lymphatic Exam: Present: no adenopathy ED Progress - Results and Orders Patient's Lab Results:: I have reviewed the patient's lab results. Results and Orders: Laboratory Tests 07/16/17 07/16/17 20:30 20:30 WBC 9.4 Hgb 15.1 Hct 42.7 Plt Count 240 Sodium 138 Potassium 3.6 Chloride 104 Carbon Dioxide 24.6 Anion Gap 13.0 BUN 13 Creatinine 1.45 H Random Glucose 126 H Calcium 9.0 Total Bilirubin 0.4 AST 22 ALT 38 Alkaline Phosphatase 93 Troponin I Less than 0.017 B-Natriuretic Peptide 110 Total Protein 7.2 Albumin 3.4 - Vital Signs Patient's Vital Signs:: I have reviewed the patient's vital signs. Vital Signs: Vital Signs 07/16/17 20:12 Temperature 36.0 C L Pulse Rate 84 Respiratory 18 Rate Blood Pressure 140/95 O2 Sat by Pulse 97 Oximetry - X-Ray X-Ray #1 X-Ray: chest Interpretation: Reviewed by me X-ray Comments: IMPRESSION: No acute cardiopulmonary process. Electronically signed by Sachi Posadas D.O.. - Progress/Reassessment Chief Complaint: Dyspnea Departure Clinical Impression: COPD exacerbation - Departure Disposition: Home Follow Up Needed Condition: Good Instructions: Chronic Obstructive Pulmonary Disease Exacerbation, [id number] Referrals: Oarl Castañeda DO [Primary Care Provider] - Prescriptions: Azithromycin 250 mg PO DAILY #4 tablet Methylprednisolone [Medrol Dosepak] 4 mg PO DAILY #21 tab.ds.pk
[2017-07-16 20:34] LABS: Hematocrit 42.7 % (42.0-52.0); Hemoglobin 15.1 gm/dL (13.5-18.0); Mean Cell Volume 87.9 fl (78-100); Mean Corpuscular Hemoglobin 31.1 pg (27-31); Mean Corpuscular Hgb Conc 35.4 g/dl (32-36); Mean Platelet Volume 9.6 fl (6.0-9.5); Neutrophil # 6.2 K/mm3 (1.3-6.0); Neutrophil % 66.6 % (42-75.0); Platelet Count 240 K/mm3 (150-450); Red Blood Count 4.86 M/mm3 (4.7-6.0); Red Cell Distribution Width 12.5 % (11.5-14.0); White Blood Count 9.4 K/mm3 (4.0-10.5)
[2017-07-16 20:55] LABS: ALT 38 U/L (19-67); AST 22 U/L (0-48); Albumin * 3.4 gm/dl (3.4-5.0); Alkaline Phosphatase * 93 U/L (50-170); BNP * 110 pg/mL (5-140); Bilirubin, Total 0.4 mg/dL (0.0-1.1); Blood Urea Nitrogen 13 mg/dL (6-23); Ca. Corrected For Albumin 9.2 mg/dL (8.4-10.2); Carbon Dioxide 24.6 mmol/L (24-32.6); Chloride 104 mmol/L (97-106); Glucose * 126 mg/dL (70-110); Potassium 3.6 mmol/L (3.4-4.6); Sodium 138 mmol/L (132-142); Total Protein 7.2 gm/dL (6.2-8.2); Troponin I Less than 0.017 ng/ml (0.00-0.10)
[2017-07-16] MEDS ORDERED: AZITHROMYCIN 250 MG TABLET PO ONE (22:34)
[2017-07-16] MEDS ORDERED: METHYLPREDNISOLONE SOD SUCC/PF 125 MG/2 ML VIAL IV ONE (22:35)
[2017-07-16] MEDS ORDERED: AZITHROMYCIN 250 MG TABLET ONE (22:39)
[2017-07-16] MEDS ORDERED: METHYLPREDNISOLONE SOD SUCC/PF 125 MG/2 ML VIAL ONE (22:39)
[2017-07-17 08:39] VITALS: BP 119/74
== END 2017-07-16 22:50 | disposition home or self-care (01) ==
LOC: ER 20:09
DX: E78.5 Hyperlipidemia, unspecified; I10 Essential (primary) hypertension; I50.9 Heart failure, unspecified; J44.1 Chronic obstructive pulmonary disease with (acute) exacerbation; Z87.891 Personal history of nicotine dependence; I25.2 Old myocardial infarction